=== PATIENT | male | born 1955 | race Caucasian/White ===

== ENCOUNTER → 2021-01-21 09:44 | Outpatient (BNVA) | payer MEDICARE, OTHER, SELFPAY | PROVIDERS: PCP Internal Medicine Hematology & Oncology; Visit Provider Internal Medicine Cardiovascular Disease | DX: I25.10 Atherosclerotic heart disease of native coronary artery without angina pectoris (principal); I10 Essential (primary) hypertension | CPT/HCPCS: 93005; 99212 ==

== ENCOUNTER → 2021-04-13 09:16 | Outpatient (REF) | payer MEDICARE, OTHER, SELFPAY ==
--- NOTE | 2021-04-13 09:25 | CA_ITS ---
Transthoracic Echocardiogram Patient (Last, First, Middle): Willian Meredith, Gender: Male Date of : 1955 Age: 65 Procedure Date: 04/13/2021 Procedure Type: Transthoracic Echocardiogram Location: OP Height: 167.64 cm Weight: 90.72 kg BSA: 2.00 m2 Heart Rate: bpm BP: 128 / 78 mmHg Precision Mill[place]: ELINOR Referring MD: Eliu Garcia MD Symptoms: I25.10 - Atherosclerotic heart disease of [place] coronary... Study Quality: Fair Conclusions: - Normal left ventricular size, thickness, systolic function, and wall motion. - Diastolic function is normal for age. - Normal right ventricular cavity size and systolic function. - There is mild dilatation of the ascending aorta measuring 3.60 cm. Findings Left Ventricle Normal left ventricular size, thickness, systolic function, and wall motion. The visually estimated ejection fraction is between 60-65%. Diastolic function is normal for age. Right Ventricle Normal right ventricular cavity size and systolic function. Atria Both atria are normal in size. Aortic Valve There is a normal trileaflet aortic valve. There is no aortic valve stenosis. There is no aortic valve regurgitation. Mitral Valve Normal mitral valve structure and function. There is no mitral valve regurgitation. There is no mitral valve stenosis. Pulmonic Valve The pulmonic valve is likely normal. There is trace pulmonic valve regurgitation. Tricuspid Valve Normal tricuspid valve structure. There is trace tricuspid valve regurgitation. Normal right atrial pressure. There is no evidence of pulmonary hypertension. Great Vessels There is mild dilatation of the ascending aorta measuring 3.60 cm. The visualized portions of the pulmonary artery and branches are normal. Venous The inferior vena cava is normal in size and collapses greater than 50% with inspiration. Pericardium/Pleural Normal pericardial structure. There is no evidence of pericardial effusion. Prior Study Comparison Changes noted compared to prior study dated: 08/05/2018. Mild dilation of ascending aorta 3.6 cm. Measurements 2D Linear Measurements IVSd: 1.08 0.6-0.9/0.6-1.0 cm LVIDd: 4.36 3.9-5.3/4.2-5.9 cm LVIDd Index: 2.18 2.4-3.2/2.2-3.1 cm/m2 LVIDs: 2.58 2.0-3.6 cm LVPWd: 0.93 0.7-1.1 cm Ao Root: 3.70 2.1-3.5 cm LA Diam: 3.40 2.7-3.8/3.0-4.0 cm LAIDs Index: 1.70 1.5-2.3 cm/m2 LV Mass: 182.24 67-162/88-224 g LV Mass Index: 91.12 43-95/49-115 g/m2 LVOT Diam: 2.00 3.0+(-)1.3 cm 2D Systolic Function EF 4C: 58.00 >55% EF 2C: 60.20 >55% EF BiP: 60.30 >55% Mitral Valve MV Pk E: 0.63 MV PK A: 0.69 MV Decel Time: 255.00 E/A: 0.90 E'Lateral: 9.25 E'Medial: 7.18 E/E' Med: 8.80 E/E' Lat: 6.80 PHT: 75.00 MVA PHT: 2.93 Decel [place]: 2.47 Aortic Valve AoV Pk Jose: 1.74 AoV Mn Jose: 1.21 AoV VTI: 0.36 AoV Pk Grad: 12.00 Aov Mn Grad: 7.00 JANEL Cont.VTI: 2.30 LVOT LVOT Pk Jose: 1.39 LVOT Mn Jose: 0.82 LVOT VTI: 0.26 LVOT Pk Grad: 8.00 LVOT Mn Grad: 3.00 LVOT Diam: 2.00 LVOT Area: 3.14 Diastolic Function MV Pk E: 0.63 MV Pk A: 0.69 E/A: 0.90 E'Medial: 7.18 E/E' Med: 8.80 E' Laterial: 9.25 E/E' Lat: 6.80 Right Ventricle TAPSE (mm): 1.91 TVS' Jose: 13.40 Tricuspid Valve TR Pk Jose: 2.08 TR Pk Grad: 17.00 RA Press: 3.00 RVSP: 20.00 Great Vessels Aorta Ao Root-2D: 3.70 2.0-3.7 cm Ao Asc: 3.60 2.1-3.4 cm Ao Arch: 2.90 Updated in Other Vendor System with Status of Final Eliu Garcia MD electronically signed on 04/13/2021 10:28:36 AM with status of Final
== END ==
LOC: HO.CARD 09:16
PROVIDERS: Visit Provider Internal Medicine Cardiovascular Disease
DX: I25.10 Atherosclerotic heart disease of native coronary artery without angina pectoris (principal)
CPT/HCPCS: 93306

== ENCOUNTER 2022-11-22 12:39 | Outpatient (AMB) | payer MEDICARE, SELFPAY ==
[2022-11-22 12:47] VITALS: BP 140/70; PULSE 80; BMI 32.7
--- NOTE | 2022-11-22 12:47 | A.OFFVIS_ITS ---
Intake Vital Signs 11/22/22 12:47 Height 5 ft 6 in Weight 202 lb 13.204 oz BMI 32.7 BP 140/70 H Blood Pressure Location Lt brachial Position Sitting Pulse 80 Intake Visit Reasons: OVERDUE FUP KM PT Intake Note: overdue FUP KM PT patient needs clerance for dental procedure Producer Assistant Required: No Allergies No Known Allergies Allergy (Verified 11/22/22 12:57) multi environmental allergies Allergy (Unknown, Uncoded 01/21/21 09:50) UNKNOWN HPI OVERDUE FUP KM PT HPI Details Willian is a 67-year-old male with past medical history hypertension, hyperlipidemia, CAD with LAD stent who presents for follow-up. Today he reports he has been doing well since his last visit here 01/21/2021. He denies any chest discomfort at rest or with activity. No shortness of breath, palpitations, dizziness, presyncope, syncope, PND, orthopnea or edema. He continues on Plavix as well as aspirin and reports some easy bruising at time but no bleeding issues. 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 No cardiac concerns. [facility] Surgical History History of hernia repair History of left knee surgery S/P correction of deviated nasal septum Family History Mother CVD (cardiovascular disease) Father CVD (cardiovascular disease) Social History Alcohol intake: current Alcohol intake frequency: holidays/special occasions only Patient Tobacco Use Status: Never used Tobacco Review of Systems Const All systems reviewed & are unremarkable except as noted in HPI and below ENT Reports dizziness Card Denies chest pain, Denies chest pain at rest, Denies chest pain with activity, Denies rapid heart rate, Denies pedal edema, Denies edema, Denies leg edema, Denies lightheadedness, Denies palpitations, Denies dyspnea, Denies dyspnea on exertion and Denies orthopnea Resp Denies cough, Denies dyspnea and Denies dyspnea on exertion GI Denies hematochezia and Denies change in stool character Musc Denies abnormal gait, Reports limited range of motion, Reports muscle cramps, Denies muscle weakness, Denies numbness, Denies radiating pain into limb, Denies stiffness and Denies tingling Neuro Denies abnormal gait, Reports dizziness, Denies numbness and Denies tingling Endo Denies palpitations Physical Exam Vital Signs: Last Vital Signs Pulse 80 11/22/22 12:47 BP 140/70 H 11/22/22 12:47 BMI result Body Mass Index 32.7 Const General: cooperative, healthy appearing, comfortable and no acute distress Orientation/consciousness: patient oriented x3 Neck Neck: Yes normal visual inspection Resp Effort & Inspection: normal respiratory effort Auscultation: clear to auscultation bilaterally, no crackles, no rales, no rhonchi and no wheezes Cardio Jugular venous distension: no JVD Rate: regular rate Rhythm: regular rhythm Heart sounds: S1 normal heart sound present, S2 normal heart sound present, no murmurs and no rubs Neuro General: patient oriented x3 Extrem General: Yes normal to inspection Psych Appearance: grossly normal Mental Status: mental status grossly normal Speech and movement: Normal speech and movement present Office Procedures EKG Details: Today, read by me, normal sinus rhythm, no acute ST or T-wave abnormalities, QTC 417 milliseconds, rate 80 [id number], Complete Assessment & Plan Assessment & Plan (1) CAD (coronary artery disease): Code(s): I25.10 - Atherosclerotic heart disease of [place] coronary artery without angina pectoris Plan: History of CAD. Prior reports of chest discomfort and underwent an echocardiogram and stress test each of which were abnormal. He underwent cardiac catheterization approximately 4 years ago showing chronic LAD occlusion with [id number] collaterals, PAM was placed. Last echocardiogram 04/13/2021 showed EF 60-65%, normal RV, ascending aorta 3.6 cm. No reports of anginal sounding symptoms. He has good activity tolerance. He continues on aspirin and Plavix. No bleeding issues reported. Will check with Dr. Garcia regarding continuation of Plavix. Continue metoprolol, losartan, high-dose atorvastatin. His labs are followed by his PCP. He reports upcoming dental extraction and needs note. Note given that he can hold Plavix as needed for his procedure. Would prefer that he stay on aspirin for procedure unless dental provider and [facility] otherwise. Cardiology follow-up in 1 year, sooner if needed. (2) Essential hypertension: Code(s): I10 - Essential (primary) hypertension Plan: Mild elevation today. He reports some anxiety with office visits. He describes having upcoming visit with his PCP in the near future. If blood pressure remains elevated then would increase losartan dose. (3) Hyperlipidemia: Code(s): E78.5 - Hyperlipidemia, unspecified Plan: [place] LDL goal less than 70. No recent labs for review. There followed by PCP. Coding Level of Care Code Est Pt Level 3 (60864) Diagnoses CAD (coronary artery disease) I25.10 Essential hypertension I10 Hyperlipidemia E78.5 CPT Codes EKG - CPT: 42735-[id number], Complete ([id number]) Time Spent (min) 24 Comment Chart review, documentation, interview, assessment
== END 2022-11-22 13:26 | disposition home or self-care (01) ==
PROVIDERS: PCP Internal Medicine Hematology & Oncology; Visit Provider Nurse Practitioner Family
DX: I25.10 Atherosclerotic heart disease of native coronary artery without angina pectoris (principal); I10 Essential (primary) hypertension; E78.5 Hyperlipidemia, unspecified
CPT/HCPCS: 93010; 99213

== ENCOUNTER → 2022-11-22 12:39 | Outpatient (BNVA) | payer MEDICARE, SELFPAY | PROVIDERS: PCP Internal Medicine Hematology & Oncology; Visit Provider Nurse Practitioner Family | DX: Z01.810 Encounter for preprocedural cardiovascular examination (principal); I25.10 Atherosclerotic heart disease of native coronary artery without angina pectoris; I10 Essential (primary) hypertension; E78.5 Hyperlipidemia, unspecified; Z95.5 Presence of coronary angioplasty implant and graft; Z98.890 Other specified postprocedural states; Z79.82 Long term (current) use of aspirin; Z79.899 Other long term (current) drug therapy | CPT/HCPCS: 93005; 99212 ==